=== PATIENT | female | born 1980 | race Caucasian/White ===

== ENCOUNTER → 2023-12-20 11:11 | Outpatient (REF) | payer OTHER, SELFPAY | LOC: RAD 11:11 | PROVIDERS: ATTENDING PHYSICIAN Emergency Medicine | DX: R59.0 Localized enlarged lymph nodes (principal); Q76.6 Other congenital malformations of ribs | CPT/HCPCS: 70491; 71101; Q9967 ==

== ENCOUNTER → 2024-11-11 14:12 | Outpatient (REF) | payer OTHER, SELFPAY | LOC: RAD 14:12 | PROVIDERS: ATTENDING PHYSICIAN Family Medicine | DX: Z86.000 Personal history of in-situ neoplasm of breast (principal) | CPT/HCPCS: 70491; 71260; Q9967 ==